=== PATIENT | male | born 1995 | race Caucasian/White ===

== ENCOUNTER 2016-06-21 19:28 | Emergency (ER) | payer OTHER ==
[~2016-06-21] VITALS: Ht 185.4 cm; Wt 81.6 kg
[2016-06-21] MEDS ORDERED: TETANUS,DIPTH,PERTUSS P/F (BOOSTRIX) 0.5 ML VIAL IM ONE (20:30)
--- NOTE | 2016-06-21 20:32 | ED Upper Extremity ---
General Chief Complaint: Upper Extremity Stated Complaint: FINGER INJ Nursing Triage Note: Pt reports a smashing injury to left 5th finger 30 min ago while helping a friend Nursing Sepsis Screen: No Definite Risk Source: patient History of Present Illness Time seen by provider: 20:15 Initial Comments PT STATES HE WAS AT THE [facility] HELPING A FRIEND, AND SMASHED HIS LEFT FIFTH FINGER IN A VENEER CUTTING MACHINE OCCURRED JUST PRIOR TO ARRIVAL NO PARESTHESIAS OR MOTOR DEFICITS NO PRIOR INJURY TO THIS FINGER PT IS RIGHT HANDED [employer] Allergies and Home Medications Allergies Coded Allergies: No Known Drug Allergies (Unverified , 06/21/16) Home Medications Mupirocin Calcium 15 Gm Cream..g. #22 15 GM TP BID Prescribed by: SARTHAK HIRSCH on 06/21/162045 Tramadol HCl 50 Mg Tablet #20 50 MG PO Q4H Prescribed by: SARTHAK HIRSCH on 06/21/162045 Constitutional: no symptoms reported Musculoskeletal: see HPI Skin: see HPI (MINOR ABRASIONS TO FINGER) Psychiatric/Neurological: No Symptoms Reported Past Sldskim-Ymwnfm-Cvpihr Hx Patient Social History Alcohol Use: Rarely Uses Recreational Drug Use: No Smoking Status: Never a Smoker Recent Foreign Travel: No Contact w/Someone Who Travel: No Recent Infectious Disease Expo: No Recent Hopitalizations: No Immunizations Up To Date Tetanus Booster (TDap): More than 5yrs Seasonal Allergies Seasonal Allergies: No Surgeries HX Surgeries: Yes (SINUS SURGERY) Respiratory Hx Respiratory Disorders: No Cardiovascular Hx Cardiac Disorders: No Neurological Hx Neurological Disorders: No Reproductive System Hx Reproductive Disorders: No Genitourinary Hx Genitourinary Disorders: No Gastrointestinal Hx Gastrointestinal Disorders: No Musculoskeletal Hx Musculoskeletal Disorders: No Endocrine Hx Endocrine Disorders: No HEENT HX ENT Disorders: No Cancer Hx Cancer: No Psychosocial Hx Psychiatric Problems: No Integumentary HX Skin/Integumentary Disorder: No Blood Transfusions Hx Blood Disorders: No Physical Exam Vital Signs Vital Sign - Last 12Hours 06/21/16 20:07 Temp 100.2 Pulse 101 Resp 20 B/P 143/79 Pulse Ox 99 O2 Delivery Room Air Capillary Refill : Less Than 3 Seconds General Appearance: WD/WN no apparent distress Hand: Left (LEFT FIFTH FINGER WITH SUBUNGUAL HEMATOMA. NAIL INTACT. MINOR ABRASIONS TO DORSUM OF DISTAL FINGER. MOTOR/SENSORY/VASCULAR INTACT. ) Neurologic/Tendon: normal sensation normal motor functions normal tendon functions Neurologic/Psychiatric: no motor/sensory deficits alert normal mood/affect Skin: normal color warm/dry Progress/Results/Core Measures Results/Orders My Orders Orders-JOYCELYNSARTHAK Alexis ZUNIGA Vaccine Administration Single (06/21/16 ) Medications Given in ED Vital Signs/I&O Blood Pressure Mean: 100 Diagnostic Imaging Comments XRAYS FINGER--TUFT FX--PER RADIOLOGIST REPORT @ 2041 Reviewed: Reviewed by Me Departure Impression Impression: Primary Impression: TUFT FRACTURE LEFT 5TH FINGER Additional Impressions: Abrasion of finger of left hand Yrfsmevlvs-pjbtnbruw-rdbblut (DPT) vaccination administered at current visit Subungual hematoma of left little finger Disposition: HOME, SELF-CARE Condition: Stable Departure-Patient Inst. Referrals: NO,LOCAL PHYSICIAN (PCP) Primary Care Physician [facility] Patient Instructions: Diphtheria and Tetanus Toxoids, and Acellular Pertussis Vaccine, Finger Fracture (DC), Skin Abrasions (DC) Add. Discharge Instructions: WEAR SPLINT AT ALL TIMES ICE TO AREA AT 20 MINUTE INTERVALS ELEVATE HAND MUCH POSSIBLE FOLLOW UP WITH [facility] NEXT WEEK All discharge instructions reviewed with patient and/or family. Voiced understanding. Scripts Tramadol HCl (Ultram)50 Mg [id number] Mg PO Q4H #20 TAB Prov:JOYCELYNSARTHAK Alexis ZUNIGA 06/21/16 Mupirocin Calcium (Bactroban)15 Gm Cream..g.15 Gm TP BID #22 TUBE Prov:JOYCELYNSARTHAK Alexis ZUNIGA 06/21/16 JOYCELYNSARTHAK Alexis ZUNIGA Jun 21, 2016 20:32 Cdmdihxzqb-rprjjtcxg-okuptlm (DPT) vaccination administered at current visit Disposition: HOME, SELF-CARE Condition: Stable Departure-Patient Inst. Referrals: NO,LOCAL PHYSICIAN (PCP) Primary Care Physician [facility] Patient Instructions: Diphtheria and Tetanus Toxoids, and Acellular Pertussis Vaccine, Finger Fracture (DC), Skin Abrasions (DC) Add. Discharge Instructions: WEAR SPLINT AT ALL TIMES ICE TO AREA AT 20 MINUTE INTERVALS ELEVATE HAND MUCH POSSIBLE FOLLOW UP WITH [facility] NEXT WEEK All discharge instructions reviewed with patient and/or family. Voiced understanding. Scripts Tramadol HCl (Ultram)50 Mg [id number] Mg PO Q4H #20 TAB Prov:SARTHAK HIRSCH DO 06/21/16 Mupirocin Calcium (Bactroban)15 Gm Cream..g.15 Gm TP BID #22 TUBE Prov:SARTHAK HIRSCH DO 06/21/16 SARTHAK HIRSCH DO Jun 21, 2016 20:32
--- NOTE | 2016-06-21 20:41 | Diagnostic Imaging Report ---
INDICATION: Finger injury, pain. COMPARISON: None. EXAMINATION: Two views of the left hand and multiple views of the fifth digit were obtained. FINDINGS: Nondisplaced comminuted fracture of the tuft of the fifth digit. There is no additional abnormality seen. No foreign body. IMPRESSION: Tuft fracture of the fifth digit. Dictated by: Dictated on workstation # [id number]
[2016-06-21] MEDS ORDERED: MUPI15CR TP (20:46)
[2016-06-21] MEDS ORDERED: TRAM-42 PO (20:46)
[2016-06-21] MEDS ORDERED: RX-TRAMADOL 50 MG (ULTRAM) TAB PPK#4 PO STA (20:46)
[2016-06-21] MEDS ORDERED: MUPIROCIN 2% OINT 22 GM (BACTROBAN) TUBE TOP SCH (21:00)
[2016-06-21] MEDS ORDERED: RX-TRAMADOL 50 MG (ULTRAM) TAB PPK#4 PO ONE (21:05)
[2016-06-21 21:23] VITALS: BP 120/80
== END 2016-06-21 21:23 | disposition home or self-care (01) ==
LOC: ER 19:31
DX: S62.667A Nondisplaced fracture of distal phalanx of left little finger, initial encounter for closed fracture (principal); Z23 Encounter for immunization; W23.0XXA Caught, crushed, jammed, or pinched between moving objects, initial encounter; Y92.59 Other trade areas as the place of occurrence of the external cause; Y99.0 Civilian activity done for income or pay
CPT/HCPCS: 29130; 73140; 90471; 90715